=== PATIENT | male | born 1970 | race Caucasian/White ===

== ENCOUNTER 2017-10-07 19:50 | Emergency (ER) | payer BC ==
--- NOTE | 2017-10-07 20:48 | RAD ---
LEFT FOOT THREE VIEWS: HISTORY: Foot pain. Possible insect bite to foot. FINDINGS: Small enthesophytes from the posterior and plantar calcaneus. Tarsals unremarkable. Metatarsals and phalanges appear unremarkable. No fracture. No radicular or destructive process seen. The MTP and the IP joints are unremarkable. IMPRESSION: No acute abnormality identified. POS: JOSE
== END 2017-10-07 20:51 | disposition home or self-care (01) ==
LOC: ERS 19:50
DX: L03.116 Cellulitis of left lower limb (principal); E11.9 Type 2 diabetes mellitus without complications; E78.00 Pure hypercholesterolemia, unspecified; Z79.899 Other long term (current) drug therapy
CPT/HCPCS: 36416

== ENCOUNTER 2019-12-05 11:44 | Inpatient (IN) | payer BC, OTHER ==
[~2019-12-05 11:44] MED LIST: Iopamidol-370 76% 500 ML 1 ML ONE
[2019-12-05 12:20] LABS: #Basophils 0.1 thou/uL (0.0-0.2); #Eosinphils 0.1 thou/uL (0.0-0.7); #Monocytes 0.9 thou/uL (0.11-0.59); #Neutrophils 6.4 thou/uL (1.40-6.50); %Basophils 0.7 % (0.0-1.0); %Eosinophils 0.8 % (0.0-10.0); %Lymphocytes 21.2 % (21.0-51.0); %Monocytes 9.3 % (0.0-10.0); %Neutrophils 68.1 % (42.0-75.0); Hemoglobin 17.9 g/dL (14.0-18.0); Mean Corpuscular HGB CONC 32.8 g/dL (32.0-36.0); Mean Corpuscular Hemoglobin 30.4 pg (27.0-31.0); Mean Corpuscular Volume 92.6 fL (78.0-98.0); Platelet Count 168 thou/uL (130-400); RBC Distribution Width 13.4 % (11.5-14.5); Red Blood Cell (RBC) Count 5.89 mill/uL (4.70-6.10); White Blood Cell (WBC) Count 9.4 thou/uL (4.8-10.8)
--- NOTE | 2019-12-05 12:29 | RAD ---
Exam: Chest one view HISTORY:Atrial flutter Comparison: 07/01/2016 FINDINGS: Cardiac silhouette:Obscuration of the left heart border due to near complete opacification of the lef t hemithorax. Aorta: Cannot be assessed Pulmonary vessels: Normal Costophrenic angles: Possibility of a left-sided effusion is raised. Limited evaluation due to near c omplete opacification of the left hemithorax. LUNGS: Adequate aeration of the right lung. Presumed consolidation/opacification of the left lung. Pneumothorax: None Osseous abnormalities: None IMPRESSION: Near complete opacification of the left hemithorax. Better interrogation with chest CT is recommended.
[2019-12-05] MEDS ORDERED: Diltiazem HCl 125 MG, Admixture Fee 1 EACH in Sodium Chloride 0.9% 100 ML IVPB SCH (12:30)
[2019-12-05 12:33] LABS: ALT (SGPT) 14 U/L (8-55); AST (SGOT) 14 U/L (5-34); Albumin 4.5 g/dL (3.5-5.0); Alkaline Phosphatase 97 U/L (40-110); Anion Gap 15 mmol/L (10-20); BUN (Urea Nitrogen) 16 mg/dL (8.9-20.6); Bilirubin, Total 1.1 mg/dL (0.2-1.2); CK (CPK) 91 U/L (30-200); Calc. Creatinine Clearance 0 mL/min (70-130); Calcium 9.9 mg/dL (7.8-10.44); Carbon Dioxide 27 mmol/L (22-29); Chloride 102 mmol/L (98-107); Estimated GFR-MDRD 86; Globulin 3.4 g/dL (2.4-3.5); Glucose 122 mg/dL (70-105); Lipase 14 U/L (8-78); Potassium 4.1 mmol/L (3.5-5.1); Protein, Total 7.9 g/dL (6.0-8.3); Sodium 140 mmol/L (136-145)
[2019-12-05] MEDS ORDERED: Enoxaparin Sodium 100 MG/ML SYRINGE ONE (12:47)
[2019-12-05 12:53] LABS: INR-International Normal Ratio 1.1; Prothrombin Time 14.1 sec (12.0-14.7)
[2019-12-05 12:54] LABS: PTT 32.3 sec (22.9-36.1)
[2019-12-05] MEDS ORDERED: Diltiazem 125 MG/25 ML ONE (13:00)
[2019-12-05 14:38] LABS: Troponin I 0.042 ng/mL (< 0.028)
[2019-12-05] MEDS ORDERED: Aspirin Chewable 81 MG TAB ONE (14:42)
[2019-12-05] MEDS ORDERED: Metoprolol Tartrate 5 MG/5 ML VIAL ONE (14:53)
[2019-12-05] MEDS ORDERED: Enoxaparin Sodium 120 MG/0.8 ML SYRINGE SC SCH ×2 (15:00→23:45)
[2019-12-05] MEDS ORDERED: Dextrose 50% Abboject 50 ML SYRINGE SLOW IVP PRN (15:26)
[2019-12-05] MEDS ORDERED: HumaLOG 300 UNITS/3 ML VIAL SC PRN ×2 (15:26)
[2019-12-05] MEDS ORDERED: Senokot S 8.6-50 MG TAB PO PRN (15:26)
[2019-12-05] MEDS ORDERED: Bisacodyl 10 MG SUPP PR PRN (15:26)
[2019-12-05] MEDS ORDERED: Dextrose 5% in Water 1,000 ML IV PRN (15:26)
[2019-12-05] MEDS ORDERED: Calcium Carbonate 500 MG ChewTAB PO PRN (15:26)
[2019-12-05] MEDS ORDERED: Ondansetron PF 4 MG/2 ML Vial IVP PRN (15:26)
[2019-12-05] MEDS ORDERED: Acetaminophen 325 MG TAB PO PRN (15:26)
[2019-12-05] MEDS ORDERED: Guaifenesin DM 100-10/5 ML UDCUP PO PRN (15:26)
[2019-12-05 16:59] LABS: Troponin I 0.057 ng/mL (< 0.028)
--- NOTE | 2019-12-05 18:21 | HP ---
REASON FOR ADMISSION: Atrial fibrillation with RVR. HISTORY OF PRESENTING ILLNESS: The patient gives history of his apple watch saying that he is in atrial fibrillation with rates up to 150 beats per minute around 4 :30 p.m. yesterday. He had these episodes off and on till 8:30 p,m. yesterday. This morning, he went to see Dr. Perales for the same and they did EKG in the office, which showed his heart rate to be in the 150s. He was sent to the ER for further workup. The patient states he has no complaints of chest pain, shortness of breath, or palpitation. He also mentions that his resting heart rate ranges anywhere from 105 to 110 beats per minute. 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 He has not had any chemoradiation after that. He states he gets a yearly CAT scan and the last one was in June or July with contrast, which did not show any recurrence as far as he knows. No history of bleeding per rectum. No exposure to COVID. No fever, cough, or expectoration. 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 Last colonoscopy was 3 years back with polyps, but no malignancy. The patient gets yearly CT chest with contrast for surveillance, which the last one was in June or july and did not and did not show any recurrence of his cancer. CURRENT MEDICATIONS: 1. Janumet mg p.o. q.p.m. 2. Invokana 300 mg daily. 3. Lipitor 10 mg p.o. daily. ALLERGIES: NO KNOWN DRUG ALLERGIES. PERSONAL HISTORY: Does not abuse alcohol or drugs. No history of smoking. FAMILY HISTORY: Both parents are healthy. His sister has had history of atrial fibrillation. CODE STATUS: Full. Power of sports attorney is his . REVIEW OF SYSTEMS: CONSTITUTIONAL: Negative for weight loss or gain, ability to conduct usual activities. SKIN: Negative for rash, itching. EYES: Negative for double vision, pain. ENT/MOUTH: Negative for nose bleeding, neck stiffness, pain, tenderness. CARDIOVASCULAR: Negative for palpitations, dyspnea on exertion, orthopnea. RESPIRATORY: Negative for shortness of breath, wheezing, cough, hemoptysis, fever or night sweats. GASTROINTESTINAL: Negative for poor appetite, abdominal pain, heartburn, nausea , vomiting, constipation, or diarrhea. GENITOURINARY: Negative for urgency, frequency, dysuria, nocturia. MUSCULOSKELETAL: Negative for pain, swelling. NEUROLOGIC/PSYCHIATRIC: Negative for anxiety, depression. ALLERGY/IMMUNOLOGIC: Negative for skin rash, bleeding tendency. PHYSICAL EXAMINATION: GENERAL: The patient is a 49-year-old male, who is currently in mild distress due to heart rates going up to 150s. VITAL SIGNS: Blood pressure 138/80, pulse 150 per minute, respiratory rate 18 per minute, temperature 98.1 degrees Fahrenheit, and saturating 99% on room air. NECK: Supple. No elevated JVD. HEENT: Eyes; extraocular muscles intact. Pupils reacting to light. Oral cavity, mucous membranes are moist. No exudates or congestion. CARDIOVASCULAR SYSTEM: S1 and S2 heard. Irregular rhythm. RESPIRATORY: Air entry 1+ bilateral. There is no air entry in the left hemithorax. The right lung. No wheezing or rhonchi. There is good air entry in the right hemithorax. ABDOMEN: Soft. Bowel sounds heard. No tenderness, rigidity, or guarding. EXTREMITIES: No peripheral edema or calf tenderness. VASCULAR SYSTEM: Peripheral pulses 1+ bilateral. No ischemic ulcerations or gangrene. CENTRAL NERVOUS SYSTEM: No gross focal motor deficits noted. The patient is alert, awake, and oriented well. PSYCHIATRIC SYSTEM: The patient's mood is euthymic. No hallucinations or delusions. DIAGNOSTIC DATA: Chest x-ray done shows prior pneumonectomy in the left hemithorax. There is adequate aeration of the right lung. No pneumothorax. Troponin I 0.04. BNP 252. CK-MB 3.0. Albumin 4.5. TSH 1.45. BUN 16, creatinine 0.9, serum glucose 122. Lactic acid 1.7. Liver enzymes within normal limits. PT, INR, and PTT within normal limits. White count of 9, H and H of 17 and 54, platelet count 168 with 68% neutrophils, MCV is 92. EKG done shows atrial fibrillation with RVR Vs a.flutter at around 150 beats per minute. CLINICAL IMPRESSION AND PLAN: The patient will be admitted to telemetry for atrial fibrillation with RVR. I have spoken to Dr. Nunes for Cardiology consultation. He has received 20 mg Cardizem IV push in the ER and was placed on 5 mg/hour drip, which has been escalated to 10 mg/hour. He has received a full-dose aspirin and 110 mg of Lovenox full dose x1. We will continue saxagliptin and metformin as before. The patient is very particular about what medications he would need for his heart and I have Dr. Nunes to discuss with him. He was not comfortable taking digoxin or Lopressor in the ER. Also, the patient was wanting adenosine to be given to see if it is SVT. In view of the patient's preference for certain medications and wanting his specialist to visit him, we will await Dr. Nunes's interaction with him before he is placed on any other new medications. We will continue Cardizem 10 mg an hour for now. We will also continue Lovenox 110 mg subcu q.12 hourly. Echo with 2D Doppler for LV function will be obtained. He will be on clear liquid diet until his heart rate stabilizes. He also mentions that his baseline heart rate goes up to 110 per minute. Job ID: [id number] MTDD
--- NOTE | 2019-12-05 19:49 | CT ---
EXAM: CT of the chest with contrast HISTORY: Intermittent tachycardia; history of left lung removal COMPARISON: 05/12/2016 TECHNIQUE: Multiple contiguous axial images were obtained in a CT the chest with contrast. Coronal an d sagittal reformats were performed. FINDINGS: HEART: Normal in size without focal cardiac abnormality MEDIASTINUM: No hilar or mediastinal lymphadenopathy. LUNGS: The left lung is absent. The previously seen left lung mass has been removed. No abnormality i s seen in the right lung. PLEURAL SPACE: A small amount of fluid is seen in the left apex and is expected postpneumonectomy. CHEST WALL SOFT TISSUES: Unremarkable OSSEOUS STRUCTURES: Multiple left rib fractures are seen from prior surgery. There is radiodense mate rial adjacent to multiple ribs on the left and adjacent to the spleen. Mild degenerative changes are seen in the spine. VISUALIZED SUBDIAPHRAGMATIC STRUCTURES: Unremarkable IMPRESSION: 1. No evidence of acute intrathoracic abnormality. 2. Interval left pneumonectomy with postsurgical changes in the left thorax. There is radiodense mate rial adjacent multiple ribs in the spleen. This may represent heterotopic ossification or some sort of radiodense material used for pleurodesis.
--- NOTE | 2019-12-05 19:56 | CON ---
DATE OF CONSULTATION: 12/05/2019 REASON FOR CONSULTATION: Atrial flutter. PRIMARY END POLISHER: Jerry Haile MD HISTORY OF PRESENT ILLNESS: Mr. Hwang is a very pleasant 49-year-old white gentleman, who comes to the hospital for tachycardia. He noted that his heart rate was in the 150s yesterday on his Apple Watch, so he can see Dr. Perales today who found his heart rate in the 150s. He had an EKG in the office that showed atrial flutter. He was sent to the ER for this and for further evaluation. In the ER, he was found to be in atrial flutter still in 140s to 150s. He was started on diltiazem drip and has better rate control, but it is still in the 120s. Cardiology has been consulted for further evaluation and care. In my evaluation, Mr. Hwang denies any palpitations. No chest pain, tightness, pressure. No syncope or presyncope. PAST MEDICAL HISTORY: 1. Type 2 diabetes. 2. Hyperlipidemia. 3. History of a large squamous cell carcinoma in the left lung, status post complete left pneumonectomy. 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 OUTPATIENT MEDICATIONS: 1. Janumet mg q.p.m. 2. Invokana 300 mg a day. 3. Lipitor 10 mg a day. ALLERGIES: NO KNOWN DRUG ALLERGIES. SOCIAL HISTORY: No alcohol, tobacco, or drugs. 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 FAMILY HISTORY: Sister with atrial fibrillation. REVIEW OF SYSTEMS: A 12-point review of systems was done and was found to be negative other than stated in the history of present illness. PHYSICAL EXAMINATION: VITAL SIGNS: Temperature 97.2, pulse 120, respiratory rate 16, saturating 98% on room air, and blood pressure 108/62. GENERAL: Awake, alert, oriented x3, in no distress. HEENT: Normocephalic and atraumatic. NECK: Supple. LUNGS: Clear right lung. No lung sounds on the left base consistent with history of left pneumonectomy. CARDIOVASCULAR: S1 and S2, tachycardic in the 120s. No murmurs. ABDOMEN: Soft. Positive bowel sounds. EXTREMITIES: Trace edema. SKIN: Warm and dry. LABORATORY DATA: Laboratory work was reviewed. White count of 9, hemoglobin 17, hematocrit 54, platelet count 168. Coags were normal. Chemistries were unremarkable. Glucose was 122. Troponin was 0.04 and 0.05. BNP was 252. TSH was normal. Lipase was normal. EKG was reviewed. Chest x-ray was reviewed. ASSESSMENT/PLAN: 1. Typical atrial flutter. 2. History of lung cancer, status post left pneumonectomy. PLAN: 1. We will try to rate control over the weekend, but talking with Mr. Hwang, the best course of action is to just schedule for an ablation. Over the weekend, try to rate control and start him on full anticoagulation and plan on consulting electrophysiology on Sunday for possible atrial flutter/ablation. Mr. Hwang is in complete agreement with this. We will continue full-dose Lovenox subcutaneously and diltiazem drip just rate control during the weekend. 2. We will get an echocardiogram and has already been ordered. May need a repeat CT of the chest with contrast, make sure there is nothing over stimulating the right ventricle causing this atrial flutter with history of lung cancer. Thank you for letting us to participate in the care of your patient. We will follow. Job ID: [id number]
[2019-12-05] MEDS: metFORMIN 500 MG TAB PO SCH (21:11)
[2019-12-05] MEDS: Atorvastatin Calcium 10 MG TAB PO SCH (21:27)
[2019-12-05 22:45] VITALS: BMI 34.2
[2019-12-06] MEDS: Diltiazem 125 MG in Sodium Chloride 0.9% 100 ML IVPB SCH ×3 (00:44→22:53)
[2019-12-06 03:36] LABS: #Eosinphils 0.1 thou/uL (0.0-0.7); #Lymphocytes 2.4 thou/uL (1.20-3.40); #Monocytes 0.9 thou/uL (0.11-0.59); %Eosinophils 0.7 % (0.0-10.0); %Lymphocytes 28.9 % (21.0-51.0); %Monocytes 10.8 % (0.0-10.0); %Neutrophils 59.5 % (42.0-75.0); Hemoglobin 15.9 g/dL (14.0-18.0); Mean Corpuscular HGB CONC 33.3 g/dL (32.0-36.0); Mean Corpuscular Hemoglobin 30.3 pg (27.0-31.0); Mean Corpuscular Volume 91.1 fL (78.0-98.0); Platelet Count 143 thou/uL (130-400); RBC Distribution Width 13.1 % (11.5-14.5); Red Blood Cell (RBC) Count 5.23 mill/uL (4.70-6.10); White Blood Cell (WBC) Count 8.4 thou/uL (4.8-10.8)
[2019-12-06 03:54] LABS: Anion Gap 13 mmol/L (10-20); BUN (Urea Nitrogen) 15 mg/dL (8.9-20.6); Calc. Creatinine Clearance 196 mL/min (70-130); Calcium 9.2 mg/dL (7.8-10.44); Carbon Dioxide 23 mmol/L (22-29); Chloride 104 mmol/L (98-107); Estimated GFR-MDRD Greater than 90; Glucose 115 mg/dL (70-105); Sodium 136 mmol/L (136-145)
[2019-12-06] MEDS: metFORMIN 500 MG TAB PO SCH (08:33)
[2019-12-06] MEDS: Enoxaparin Sodium 120 MG/0.8 ML SYRINGE SC SCH ×2 (08:35→20:48)
[2019-12-06] MEDS ORDERED: Prevnar 13-Val Conj/PF 0.5 ML SYRINGE IM ONE (09:00)
[2019-12-06] MEDS ORDERED: Alogliptin 6.25 MG TAB PO SCH (09:00)
--- NOTE | 2019-12-06 12:50 | PDOC.CPN ---
- Subjective Date: 12/06/19 Time: 12:48 Interval history: Feeling well. No new issues. - Review of Systems General: denies: fever/chills, weight/appetite/sleep changes, night sweats, fatigue Respiratory: denies: cough, congestion, shortness of breath, exercise intolerance Cardiovascular: denies: chest pain, palpitation, edema, paroxysmal nocturnal dyspnea, orthopnea Gastrointestinal: denies: nausea, vomiting, diarrhea, constipation, abd pain, GI bleeding Musculoskeletal: denies: pain, tenderness, stiffness, swelling, arthritis/ arthralgias Neurological: denies: numbness, syncope, seizure, weakness - Objective Allergies/Adverse Reactions: Allergies Allergy/AdvReac Type Severity Reaction Status Date / Time No Known Drug Allergies Allergy Verified 12/05/19 21:15 Visit Medications: Current Medications Acetaminophen (Tylenol) 650 mg PO Q4H PRN PRN Reason: Headache/Fever/Mild Pain (1-3) Atorvastatin Calcium (Lipitor) 10 mg PO HS [facility] Last Admin: 12/05/19 21:27 Dose: 10 mg Bisacodyl (Dulcolax) 10 mg MO DAILYPRN PRN PRN Reason: Constipation Calcium Carbonate (Tums) 1,000 mg PO Q4H PRN PRN Reason: Heartburn or Indigestion Dextrose/Water (Dextrose 50%) 25 gm SLOW IVP PRN PRN PRN Reason: Hypoglycemia Enoxaparin Sodium (Lovenox) 110 mg SC 0900,2100 [facility] Last Admin: 12/06/19 08:35 Dose: 110 mg Glucagon (Glucagon) 1 mg IM PRN PRN PRN Reason: Hypoglycemia Guaifenesin/Dextromethorphan (Robitussin Dm) 15 ml PO Q4H PRN PRN Reason: Cough Dextrose/Water (D5w) 1,000 mls @ 0 mls/hr IV .Q0M PRN PRN Reason: Hypoglycemia Diltiazem HCl 125 mg/ Sodium (Chloride) 125 mls @ 10 mls/hr IVPB INF MARIO; Protocol Last Admin: 12/06/19 00:44 Dose: 125 mls Insulin Human Lispro (Humalog) 0 units SC .MODERATE SLIDING SC PRN PRN Reason: Moderate Correctional Scale Insulin Human Lispro (Humalog) 0 units SC .BEDTIME SLIDING SC PRN PRN Reason: Bedtime Correctional Scale Ondansetron HCl (Zofran) 4 mg IVP Q6H PRN PRN Reason: Nausea/Vomiting Janumet Xr 0 each PO QPM-WM MARIO Senna/Docusate Sodium (Senokot S) 2 tab PO BIDPRN PRN PRN Reason: Constipation Vital Signs & Weight: Vital Signs Temp Pulse Ox 12/06/19 11:23 96.1 F L 12/06/19 07:50 97 12/06/19 07:13 96.8 F L 12/06/19 03:45 97.2 F L Weight 259 lb 3 oz - Physical Exam General: alert & oriented x3 HEENT: mucus membranes moist Neck: supple neck Cardiac: irregularly regular Lungs: clear to auscultation Neuro: grossly intact Abdomen: active bowel sounds Extremities: 1+ LE edema Skin: clear Musculoskeletal: no pain - Labs Result Diagrams: 12/06/19 03:17 12/06/19 03:17 Troponin/CKMB CK-MB (CK-2) 3.0 ng/mL (0-6.6) 12/05/19 11:59 Troponin I 0.057 ng/mL (< 0.028) H 12/05/19 16:22 - Telemetry Supraventricular conduction: atrial flutter - Assessment/Plan Assessment/Plan: 1. Atypical atrial flutter, rate controlled. 2. Hx of Lung Ca and left pnuemonectomy. PLAN: - Continue full anticoagulation with lovenox. - Continue rate control. - EP consult Sunday for ablation hopefully same day.
--- NOTE | 2019-12-06 14:26 | PDOC.HOSPP ---
- Subjective Encounter Date: 12/06/19 Encounter Time: 13:00 Subjective: THe patient is doing well. He denies palpitations. He states he went to PCP when his apple watch showed heart rate of 120 for eleven hours. Never had atrial flutter before. Denies chest pain, cough, SOB Patient states he felt metoprolol IV worked better, diltiazem didn't work initially. Now he is on cardizem drip at 12.5/hour, heart rate 99. He is still in aflutter - Objective Vital Signs & Weight: Vital Signs (12 hours) Temp Pulse Ox 12/06/19 11:23 96.1 F L 12/06/19 07:50 97 12/06/19 07:13 96.8 F L 12/06/19 03:45 97.2 F L Weight Weight 259 lb 3 oz Most Recent Monitor Data Heart Rate from ECG 81 NIBP 109/68 NIBP BP-Mean 81 Respiration from ECG 17 SpO2 97 I&O: 12/05/19 12/06/19 12/07/19 06:59 06:59 06:59 Intake Total 240 Balance 240 Result Diagrams: 12/06/19 03:17 12/06/19 03:17 Additional Labs: Accuchecks 12/06/19 12/06/19 12/05/19 10:32 06:10 21:33 POC Glucose 156 H 130 H 114 H Hospitalist ROS - Review of Systems Constitutional: denies: fever, chills - Medication Medications: Active Medications Generic Name Dose Route Start Last Admin Trade Name Freq PRN Reason Stop Dose Admin Atorvastatin Calcium 10 mg 12/05/19 21:00 12/05/19 21:27 Lipitor PO 10 mg HS MARIO Administration Enoxaparin Sodium 110 mg 12/06/19 09:00 12/06/19 08:35 Lovenox SC 110 mg 0900,2100 MARIO Administration Diltiazem HCl 125 mg/ Sodium 125 mls @ 10 mls/hr 12/05/19 15:30 12/06/19 00: 44 Chloride IVPB 125 mls INF MARIO Administration Protocol 10 MG/HR - Exam General Appearance: NAD, awake alert Eye: PERRL, anicteric sclera ENT: normocephalic atraumatic, no oropharyngeal lesions Neck: no JVD Heart: no murmur, no gallops, no rubs Heart - other findings: tachycardic Respiratory: CTAB, no wheezes, no rales, no ronchi Gastrointestinal: soft, non-tender, non-distended, normal bowel sounds Extremities: no cyanosis, no clubbing, 1+ LE edema Skin: normal turgor, no lesions, no rashes Neurological: cranial nerve grossly intact, normal sensation to touch, no focal deficits, no new deficit Hosp A/P - Plan CT chest: no acute abnormality This is a 49 year old male who presented with new onset atrial flutter Atrial flutter - currently on cardizem drip, rate controlled at 99 - plan for ablation Sunday with EP consult - covid negative Type II diabetes - januvia and invokana Hyperlipidemia - continue atorvastatin DVT prophylais: lovenox therapeutic COde status: full code
[2019-12-06 15:32] LABS: SARS-CoV-2 MS2 Positive; SARS-CoV-2 N Gene Negative; SARS-CoV-2 S Gene Negative; SARS-CoV-2 by NAA Not Detected (NotDetected); SARS-CoV-2 orf1ab Negative
[2019-12-06] MEDS: JANUMET XR PO SCH (16:38)
[2019-12-06] MEDS: Atorvastatin Calcium 10 MG TAB PO SCH (20:50)
[2019-12-07] MEDS ORDERED: Magnesium Oxide 400 MG TAB PO SCH (09:30)
[2019-12-07] MEDS: Enoxaparin Sodium 120 MG/0.8 ML SYRINGE SC SCH ×2 (10:08→20:31)
[2019-12-07] MEDS: Empagliflozin 25 MG TAB PO SCH (13:47)
--- NOTE | 2019-12-07 14:46 | PDOC.HOSPP ---
- Subjective Encounter Date: 12/07/19 Encounter Time: 10:30 Subjective: The patient is doing well, he does experience some palpitations today. No chest pain or SOB. He is still on the cardizem drip and in atrial flutter. Awaiting EP consultation tomorrow. He is concerned about a rash on his chest that just popped up yesterday. It is no painful, not warm, no discharge. It does not itch. He is wondering whether it is ring-worm - Objective Vital Signs & Weight: Vital Signs (12 hours) Temp 12/07/19 11:07 97.2 F L 12/07/19 07:22 96.6 F L 12/07/19 03:57 97.9 F Weight Admit Weight 259 lb Weight 259 lb 3 oz Most Recent Monitor Data Heart Rate from ECG 116 NIBP 122/80 NIBP BP-Mean 94 Respiration from ECG 18 SpO2 90 I&O: 12/06/19 12/07/19 12/08/19 06:59 06:59 06:59 Intake Total 240 1080 Output Total 900 Balance 240 180 Result Diagrams: 12/06/19 03:17 12/06/19 03:17 Additional Labs: Accuchecks 12/07/19 12/07/19 12/06/19 10:48 05:42 20:35 POC Glucose 149 H 111 H 141 H 12/06/19 16:42 POC Glucose 113 H Hospitalist ROS - Review of Systems Constitutional: denies: fever, chills - Medication Medications: Active Medications Generic Name Dose Route Start Last Admin Trade Name Stefanoq PRN Reason Stop Dose Admin Atorvastatin Calcium 10 mg 12/05/19 21:00 12/06/19 20:50 Lipitor PO 10 mg HS MARIO Administration Enoxaparin Sodium 110 mg 12/06/19 09:00 12/07/19 10:08 Lovenox SC 110 mg 0900,2100 MARIO Administration Diltiazem HCl 125 mg/ Sodium 125 mls @ 10 mls/hr 12/05/19 15:30 12/06/19 22: 53 Chloride IVPB 125 mls INF MARIO Administration Protocol 10 MG/HR Miscellaneous Medication 25 mg 12/07/19 09:00 12/07/19 13:47 Jardiance PO Not Given DAILY MARIO Janumet Xr 0 each 12/06/19 17:00 12/06/19 16:38 PO 1 each QPM-[facility] Administration - Exam General Appearance: NAD, awake alert Eye: PERRL, anicteric sclera ENT: normocephalic atraumatic, no oropharyngeal lesions Neck: no JVD Heart: RRR, no murmur, no gallops, no rubs Heart - other findings: atrial flutter Respiratory: CTAB, no wheezes, no rales, no ronchi Gastrointestinal: soft, non-tender, non-distended, normal bowel sounds Extremities: no cyanosis, no clubbing, no edema Skin - other findings: mild circular rash on chest, possibly fungal Neurological: normal sensation to touch, no weakness, no focal deficits Hosp A/P - Plan CT chest: no acute abnormality This is a 49 year old male who presented with new onset atrial flutter Atrial flutter - currently on cardizem drip, rate controlled at 99 - EP consult tomorrow. Will keep NPO after midnight. - covid negative Type II diabetes - januvia and invokana. Advised to hold in am to avoid hypoglycemia Hyperlipidemia - continue atorvastatin Possible mild fungal rash on chest - started clotrimazole cream DVT prophylais: lovenox therapeutic COde status: full code
--- NOTE | 2019-12-07 16:57 | PDOC.CPN ---
- Subjective Date: 12/07/19 Time: 16:56 Interval history: No new issues. Doing well. - Review of Systems General: denies: fever/chills, weight/appetite/sleep changes, night sweats, fatigue Respiratory: denies: cough, congestion, shortness of breath, exercise intolerance Cardiovascular: denies: chest pain, palpitation, edema, paroxysmal nocturnal dyspnea, orthopnea Gastrointestinal: denies: nausea, vomiting, diarrhea, constipation, abd pain, GI bleeding Musculoskeletal: denies: pain, tenderness, stiffness, swelling, arthritis/ arthralgias Neurological: denies: numbness, syncope, seizure, weakness - Objective Allergies/Adverse Reactions: Allergies Allergy/AdvReac Type Severity Reaction Status Date / Time No Known Drug Allergies Allergy Verified 12/05/19 21:15 Visit Medications: Current Medications Acetaminophen (Tylenol) 650 mg PO Q4H PRN PRN Reason: Headache/Fever/Mild Pain (1-3) Atorvastatin Calcium (Lipitor) 10 mg PO HS [facility] Last Admin: 12/06/19 20:50 Dose: 10 mg Bisacodyl (Dulcolax) 10 mg SC DAILYPRN PRN PRN Reason: Constipation Calcium Carbonate (Tums) 1,000 mg PO Q4H PRN PRN Reason: Heartburn or Indigestion Clotrimazole (Lotrimin 1% Cream) 0 gm TOP DAILY MARIO Dextrose/Water (Dextrose 50%) 25 gm SLOW IVP PRN PRN PRN Reason: Hypoglycemia Enoxaparin Sodium (Lovenox) 110 mg SC 0900,2100 [facility] Last Admin: 12/07/19 10:08 Dose: 110 mg Glucagon (Glucagon) 1 mg IM PRN PRN PRN Reason: Hypoglycemia Guaifenesin/Dextromethorphan (Robitussin Dm) 15 ml PO Q4H PRN PRN Reason: Cough Dextrose/Water (D5w) 1,000 mls @ 0 mls/hr IV .Q0M PRN PRN Reason: Hypoglycemia Diltiazem HCl 125 mg/ Sodium (Chloride) 125 mls @ 10 mls/hr IVPB INF MARIO; Protocol Last Admin: 12/06/19 22:53 Dose: 125 mls Insulin Human Lispro (Humalog) 0 units SC .MODERATE SLIDING SC PRN PRN Reason: Moderate Correctional Scale Insulin Human Lispro (Humalog) 0 units SC .BEDTIME SLIDING SC PRN PRN Reason: Bedtime Correctional Scale Magnesium Oxide (Magnesium Oxide) 400 mg PO DAILY [facility] Miscellaneous Medication (Jardiance) 25 mg PO DAILY [facility] Last Admin: 12/07/19 13:47 Dose: Not Given Ondansetron HCl (Zofran) 4 mg IVP Q6H PRN PRN Reason: Nausea/Vomiting Janumet Xr 0 each PO QPM-WM [facility] Last Admin: 12/06/19 16:38 Dose: 1 each Patient's Home Medication (Invokana ) 0 each PO DAILY [facility] Senna/Docusate Sodium (Senokot S) 2 tab PO BIDPRN PRN PRN Reason: Constipation Vital Signs & Weight: Vital Signs Temp 12/07/19 16:00 96.9 F L 12/07/19 11:07 97.2 F L 12/07/19 07:22 96.6 F L Admit Weight 259 lb Weight 259 lb 3 oz - Physical Exam General: alert & oriented x3 HEENT: mucus membranes moist Neck: supple neck Cardiac: irregularly regular Lungs: clear to auscultation Neuro: grossly intact Abdomen: active bowel sounds Extremities: no edema Skin: clear Musculoskeletal: no pain - Labs Result Diagrams: 12/06/19 03:17 12/06/19 03:17 Troponin/CKMB CK-MB (CK-2) 3.0 ng/mL (0-6.6) 12/05/19 11:59 Troponin I 0.057 ng/mL (< 0.028) H 12/05/19 16:22 - Telemetry Supraventricular conduction: atrial flutter - Assessment/Plan Assessment/Plan: 1. Atypical atrial flutter, rate controlled. 2. Hx of Lung Ca and left pnuemonectomy. PLAN: - Continue full anticoagulation with lovenox. - Continue rate control. - EP consult tomorrow for ablation hopefully same day. - NPO past midnight.
[2019-12-07] MEDS: JANUMET XR PO SCH (17:30)
[2019-12-07] MEDS: Atorvastatin Calcium 10 MG TAB PO SCH (20:32)
[2019-12-08 04:05] LABS: Hemoglobin 15.3 g/dL (14.0-18.0); Mean Corpuscular HGB CONC 34.2 g/dL (32.0-36.0); Mean Corpuscular Volume 90.5 fL (78.0-98.0); Mean Platelet Volume 9.1 fL (7.4-10.4); Platelet Count 150 thou/uL (130-400); RBC Distribution Width 13.1 % (11.5-14.5); Red Blood Cell (RBC) Count 4.93 mill/uL (4.70-6.10); White Blood Cell (WBC) Count 8.4 thou/uL (4.8-10.8)
[2019-12-08 04:25] LABS: Anion Gap 13 mmol/L (10-20); BUN (Urea Nitrogen) 14 mg/dL (8.9-20.6); Calc. Creatinine Clearance 186 mL/min (70-130); Calcium 8.6 mg/dL (7.8-10.44); Carbon Dioxide 24 mmol/L (22-29); Chloride 104 mmol/L (98-107); Estimated GFR-MDRD Greater than 90; Glucose 140 mg/dL (70-105); Magnesium 1.7 mg/dL (1.6-2.6); Potassium 3.9 mmol/L (3.5-5.1); Sodium 137 mmol/L (136-145)
[2019-12-08] MEDS: Diltiazem 125 MG in Sodium Chloride 0.9% 100 ML IVPB SCH (06:23)
[2019-12-08] MEDS ORDERED: Magnesium Oxide 400 MG TAB PO SCH (09:00)
[2019-12-08] MEDS ORDERED: Clotrimazole 1 % Cream 30 GM TUBE TOP SCH (09:00)
[2019-12-08] MEDS ORDERED: INVOKANA PO SCH ×2 (09:00)
[2019-12-08] MEDS ORDERED: Clotrimazole 1% Cream 15 GM TUBE TOP SCH (09:00)
[2019-12-08] MEDS: Empagliflozin 25 MG TAB PO SCH (09:41)
[2019-12-08] MEDS: Enoxaparin Sodium 120 MG/0.8 ML SYRINGE SC SCH (09:42)
[2019-12-08 11:15] VITALS: TEMP 96.6
[2019-12-08] MEDS ORDERED: PROPOFOL 20 ML ONE (15:01)
[2019-12-08] MEDS ORDERED: Ketamine 50 MG/ML (10ML VIAL) ONE (15:01)
[2019-12-08] MEDS ORDERED: Rivaroxaban 10 MG TAB PO SCH (17:00)
[2019-12-08] MEDS: JANUMET XR PO SCH (18:07)
--- NOTE | 2019-12-08 20:47 | OP ---
DATE OF PROCEDURE: 12/08/2019 PROCEDURE PERFORMED: Electrical cardioversion. REASON FOR PROCEDURE: Mr. Hwang is a 49-year-old male with prior history of lung cancer, last lung resection in the past. Now, he is presenting with a sustained atrial flutter, which appears to be typical isthmus dependent in morphology. He has been anticoagulated since admission, and his palpitations and tachycardia clearly started less than 24 hours prior to admission. Hence he has prior history of pulmonectomy, we decided against ETHEL prior to the procedure due to risk of aspiration and potential pulmonary complications. He is undergoing a planned cardioversion. DESCRIPTION OF PROCEDURE: The patient received propofol by Anesthesia specialist. After adequate level of sedation achieved, synchronized 150-joule shock promptly converted the patient back to sinus rhythm. CONCLUSION: Successful cardioversion. PLAN: Initiate antiarrhythmic agents and continue rate-controlling medications and anticoagulation. Consider radiofrequency ablation of cavotricuspid isthmus at a later date. Job ID: [id number]
[2019-12-08] MEDS ORDERED: Flecainide 50 MG TAB PO SCH (21:00)
--- NOTE | 2019-12-09 06:15 | DIS ---
DATE OF ADMISSION: 12/05/2019 DATE OF DISCHARGE: 12/08/2019 DISCHARGE DIAGNOSIS: New onset atrial flutter, status post cardioversion. CONSULTATIONS: 1. Dr. Dorian Nunes with Cardiology 2. Dr. Jeff Price with EP. PROCEDURES: Cardioversion on 12/07. BRIEF HISTORY OF PRESENT ILLNESS: This is a 49-year-old male with past medical history of lung cancer, status post pneumonectomy, who presented to the emergency room after he noted his heart rate was 120 for over 11 hours on his Apple watch. He did not have any other symptoms such as shortness of breath or chest pain. He presented to the ER. He was noted to be in atrial flutter. He was started on a Cardizem drip and admitted to the [facility]. HOSPITAL COURSE: The patient was managed with a diltiazem drip on hospital. His heart rate remained controlled around 99. He continued to be in atrial flutter. He was seen by Cardiology in consultation, who recommended EP consultation. His echo showed an EF of 55% to 60%. He was seen by Dr. Price and ablation was unsuccessful due to equipment issues. He did, however, undergo a cardioversion. He was started on flecainide 100 mg twice daily, metoprolol 50 mg q.24 hours. He was also started on anticoagulation with Xarelto. He should follow up with Dr. Price in 2 weeks for possible outpatient ablation. He should also follow up with Dr. Nunes in a week as well. He should follow up with PCP in a week as well. DISCHARGE PHYSICAL EXAMINATION: VITAL SIGNS: Temperature 96.6, heart rate 83, respiratory rate 12, O2 saturation is 90% on room air, and blood pressure 132/ 76. GENERAL: The patient is obese. He is alert, awake, and oriented x3. CVS: Irregular rate and rhythm with no murmurs, rubs, or gallops. LUNGS: The patient has diminished breath sounds on the left side due to pneumonectomy. ABDOMEN: Positive bowel sounds, soft, nontender, nondistended. EXTREMITIES: No edema. PERTINENT LABORATORY DATA: CBC 12/07: Normal. BMP 12/07: Normal. Magnesium level 12/07: 1.2. LFTs 12/04: Normal. Troponin I: 0.042, 0.057. BNP 12/04: 252. TSH: 1.45. COVID PCR 12/04: Negative. IMAGING DATA: Chest x-ray 12/04: Shows near complete opacification of the left hemithorax. Chest CT 12/04: No evidence of acute intrathoracic abnormality. Multiple rib fractures are seen from prior surgery. Echo 12/06: Shows EF 55% to 60%, mild concentric LVH. Mildly dilated left atrium. Mild MR. Aortic valve sclerosis. Mild TR. Mild LA. DISCHARGE CONDITION: Stable. ACTIVITY: As tolerated. DIET: Heart healthy diet. DISCHARGE MEDICATIONS: 1. Flecainide 100 mg p.o. q.12 hours. 2. Metoprolol 50 mg p.o. q.24. 3. Xarelto 20 mg p.o. daily. 4. Sitagliptin/metformin mg tablet q.24 hours. 5. Invokana 300 mg tablet daily. 6. Atorvastatin 10 mg p.o. at bedtime. DISCHARGE INSTRUCTIONS: The patient to follow up with his PCP in a week, Dr. Price in 2 weeks for outpatient ablation and specialist employee labor relations in a week. Job ID: [id number] MTDD
--- NOTE | 2019-12-09 06:36 | CON ---
DATE OF CONSULTATION: 12/08/2019 Dictated by Sudha Wei, nurse practitioner, as a scribe for Dr. Jeff Price. Consultation performed by Dr. Jeff Price. PRIMARY HEAD OF SALES: Jerry aHile MD REASON FOR CONSULTATION: Atrial flutter in consideration of ablation. HISTORY OF PRESENT ILLNESS: Mr. Hwang is a 49-year-old gentleman who came to the hospital for tachycardia. He has an Apple watch that he regularly wears, which indicated a heart rate of 150 beats per minute the day prior to admission. He was found to be in atrial flutter with RVR with ventricular rates of 140 to 160 beats per minute. He was started on diltiazem drip, which has improved his rate control significantly. This is a newly found arrhythmia issue. Currently, he is feeling well. He denies any heart racing. Endorses occasional palpitations. He has some shortness of breath. Denies any stroke, stroke-like symptoms, or syncopal episodes. 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 Of note, he has a [place] on the left side of his pericardium as that was taken out during his pneumonectomy. PAST MEDICAL HISTORY: 1. Type 2 diabetes. 2. Hyperlipidemia. 3. Large squamous cell carcinoma, left lung, status post left pneumonectomy. REVIEW OF SYSTEMS: Twelve-point review of systems is negative except that listed above in HPI. ALLERGIES: NO KNOWN DRUG ALLERGIES. HOME MEDICATIONS: 1. Janumet XR one tablet daily. 2. Invokana one tablet daily. 3. Lipitor 10 mg p.o. nightly. FAMILY HISTORY: Sister positive for atrial fibrillation, otherwise negative for sudden cardiac or early-onset CAD. SOCIAL HISTORY: Negative for alcohol, tobacco, or illicit drug use. Former EMT, now largely working in education . OBJECTIVE: GROWTH PARAMETERS: Height 6 feet 1 inch, weight 260 pounds, BMI 34.2. VITAL SIGNS: Temperature 96.6, pulse 100, blood pressure 107/71, respirations 18, and oxygen is 96% on room air. GENERAL: The patient is alert and oriented. Speech is clear. Affect is appropriate. He is in no apparent distress at the time of the exam. HEENT: He is normocephalic and atraumatic. His sclerae are anicteric. EOMs are intact. Oral mucosa is moist and pink with adequate dentition. NECK: Large and supple. No significant jugular venous distention is seen. HEART: Rate is irregular, slightly rapid. PMI is difficult to palpate, but largely not displaced. LUNGS: Lung casas on the right are clear to auscultation. Lung sounds on the left are absent status post pneumonectomy. ABDOMEN: Obese, soft, and nontender without palpable masses. EXTREMITIES: Warm and dry to touch. Well perfused without clubbing, cyanosis, or edema. NEUROLOGIC: Grossly intact. Gait was not assessed. LABORATORY DATA: Recent blood work was reviewed. Hematology was unremarkable. Chemistry: Potassium 3.9 and creatinine 0.79. Magnesium 1.7. TSH 1.4. BNP 252. DIAGNOSTIC STUDIES: Echocardiogram on 12/07/2019, LVEF 55% to 60%, mild concentric LVH, mildly dilated left atrium. Telemetry and EKGs initially show atrial flutter with RVR, suggestive of cavotricuspid isthmus dependency in origin, continues in better rate control flutter currently. No clear atrial fibrillation is seen. IMPRESSION: 1. Atrial flutter with rapid ventricular response, newly diagnosed, suggestive of cavotricuspid isthmus dependence. 2. History of lung cancer status post left pneumonectomy. 3. Obesity. 4. Hypertension. 5. History of type 2 diabetes. 6. CHADS-VASc score of greater than or equal to 2 based on hypertension and diabetes. Oral anticoagulation is indicated, currently on weight-based Lovenox. PLAN AND RECOMMENDATIONS: Mr. Hwang is a pleasant 49-year-old gentleman who was found to have newly diagnosed atrial flutter with RVR. It does appear to be typical flutter at this point. No atrial fibrillation is seen. It has been fairly successfully rate controlled with a diltiazem drip. We discussed treatment options for dysrhythmia including ETHEL-guided cardioversion, antiarrhythmic therapy, and/or ablation. We discussed the increased complexity and difficulty his case presents with his prior left pneumonectomy. This will change his anatomical positioning of his heart in his chest, potentially making ablation more difficult. Given the high success rates with low recurrence of typical atrial flutter, my recommendation would be for attempting ablation. He does understand the risks, benefits, and alternatives. We discussed the possibility of him developing atrial fibrillation in the future as well. Highly encouraged weight loss, managing high blood pressure, and also a sleep study to assess for FRANCIS[place]. He is n.p.o. and we will try to perform the ablation later today, schedule permitting. Thank you for allowing me to participate in the care of this patient. Job ID: [id number]
--- NOTE | 2019-12-09 15:48 | EKG ---
Test Reason : Blood Pressure : / mmHG Vent. Rate : 077 BPM Atrial Rate : 077 BPM P-R Int : 178 ms QRS Dur : 108 ms QT Int : 400 ms P-R-T Axes : -16 -53 029 degrees QTc Int : 452 ms Normal sinus rhythm Possible Left atrial enlargement Left axis deviation Incomplete right bundle branch block Inferior infarct , age undetermined cannot be excluded Abnormal ECG Confirmed by DIDI BLACK ([id number]) on 12/09/2019 3:48:08 PM Referred By: Confirmed By:DIDI BLACK
== END 2019-12-08 19:43 | disposition home or self-care (01) | DRG 310 ==
LOC: ERS 11:44 → ERHOLD 13:48 → IMCU/EMU 20:33
PROVIDERS: ADMIT Internal Medicine; ATTEND Internal Medicine
PROC: 5A2204Z Restoration of Cardiac Rhythm, Single (ICD-10-PCS; principal; 2019-12-05)
DX: I48.91 Unspecified atrial fibrillation (principal); E11.9 Type 2 diabetes mellitus without complications; E78.5 Hyperlipidemia, unspecified; E78.00 Pure hypercholesterolemia, unspecified; I48.92 Unspecified atrial flutter; Z79.01 Long term (current) use of anticoagulants
CPT/HCPCS: 36415; 36416; 71045; 71260; 80048; 80053; 82550; 82553; 83605; 83690; 83735; 83880; 84443; 84484; 85025; 85027; 85610; 85730; 87635; 93005; 93010; 93306; 94760; J1650; J2704; J3490; Q9967; U0003

== ENCOUNTER 2021-01-12 16:00 | Observation (INO) | payer BC ==
[2021-01-12 16:34] LABS: #Lymphocytes 1.9 thou/uL (1.20-3.40); #Monocytes 1.1 thou/uL (0.11-0.59); %Eosinophils 0.4 % (0.0-10.0); %Lymphocytes 15.5 % (21.0-51.0); %Monocytes 8.9 % (0.0-10.0); %Neutrophils 75.2 % (42.0-75.0); Hemoglobin 17.3 g/dL (14.0-18.0); Mean Corpuscular HGB CONC 31.7 g/dL (32.0-36.0); Mean Corpuscular Hemoglobin 29.1 pg (27.0-31.0); Mean Corpuscular Volume 91.9 fL (78.0-98.0); Mean Platelet Volume 8.1 fL (7.4-10.4); Platelet Count 175 thou/uL (130-400); Red Blood Cell (RBC) Count 5.93 mill/uL (4.70-6.10)
[2021-01-12 17:01] LABS: ALT (SGPT) 18 U/L (8-55); AST (SGOT) 17 U/L (5-34); Albumin 4.5 g/dL (3.5-5.0); Alkaline Phosphatase 97 U/L (40-110); Anion Gap 14 mmol/L (10-20); BUN (Urea Nitrogen) 14 mg/dL (8.4-25.7); Bilirubin, Total 1.2 mg/dL (0.2-1.2); Calc. Creatinine Clearance 0 mL/min (70-130); Calcium 9.7 mg/dL (7.8-10.44); Carbon Dioxide 27 mmol/L (22-29); Chloride 101 mmol/L (98-107); Glucose 151 mg/dL (70-105); Potassium 4.2 mmol/L (3.5-5.1); Protein, Total 7.5 g/dL (6.0-8.3); Sodium 138 mmol/L (136-145)
[2021-01-12] MEDS ORDERED: Aspirin Chewable 81 MG TAB ONE (19:24)
[2021-01-12] MEDS ORDERED: Morphine 4 MG/ML VIAL ONE (20:45)
[2021-01-12] MEDS ORDERED: Ondansetron PF 4 MG/2 ML Vial ONE (20:45)
[2021-01-12] MEDS ORDERED: Ondansetron PF 4 MG/2 ML Vial IVP PRN (21:25)
[2021-01-12] MEDS ORDERED: Acetaminophen 325 MG TAB PO PRN (21:25)
[2021-01-12] MEDS ORDERED: Dextrose 5% in Water 1,000 ML IV PRN (21:25)
[2021-01-12] MEDS ORDERED: Dextrose 50% Abboject 50 ML SYRINGE SLOW IVP PRN (21:25)
[2021-01-12] MEDS ORDERED: HumaLOG 300 UNITS/3 ML VIAL SC PRN (21:25)
[2021-01-12] MEDS ORDERED: Aspirin 325 MG TAB PO SCH (21:30)
[2021-01-12 23:02] LABS: Troponin I Less than 0.010 ng/mL (< 0.028)
[2021-01-12] MEDS ORDERED: Nitroglycerin 2% Ointment 1 INCH/1 GM Packet ONE (23:42)
[2021-01-12] MEDS ORDERED: Acetaminophen 325 MG TAB ONE (23:42)
[2021-01-12] MEDS: Nitroglycerin 2% Ointment 1 INCH/1 GM Packet TOP SCH (23:51)
[2021-01-12 23:52] VITALS: BMI 33.0
[2021-01-13 00:21] VITALS: BP 98/60; TEMP 98.6
[2021-01-13 01:25] LABS: Troponin I Less than 0.010 ng/mL (< 0.028)
[2021-01-13 01:31] LABS: SARS-CoV-2 NAA Rapid Test Not Detected (NotDetected)
[2021-01-13 04:45] LABS: Anion Gap 15 mmol/L (10-20); BUN (Urea Nitrogen) 13 mg/dL (8.4-25.7); BUN/Creatinine Ratio 15.85; Calc. Creatinine Clearance 171 mL/min (70-130); Calcium 9.5 mg/dL (7.8-10.44); Carbon Dioxide 28 mmol/L (22-29); Cardiac Risk 3.4 (Less than 4.5); Chloride 100 mmol/L (98-107); Cholesterol 142 mg/dl (< 200 Desired); Glucose 109 mg/dL (70-105); HDL Cholesterol 42 mg/dL (>60 Neg Risk); LDL Cholesterol, Calculated 82 mg/dL; Phosphorus 3.6 mg/dL (2.3-4.7); Potassium 4.9 mmol/L (3.5-5.1); Sodium 138 mmol/L (136-145); Triglycerides 90 mg/dL (Less than 150)
[2021-01-13] MEDS ORDERED: Enoxaparin Sodium 40 MG/0.4 ML SYRINGE SC SCH (09:00)
[2021-01-13] MEDS ORDERED: Aspirin Chewable 81 MG TAB PO SCH (09:00)
[2021-01-13] MEDS ORDERED: Empagliflozin 25 MG TAB PO SCH (09:00)
[2021-01-13] MEDS ORDERED: Clopidogrel Bisulfate 75 MG TAB PO SCH (09:00)
[2021-01-13] MEDS ORDERED: Clopidogrel Bisulfate 75 MG TAB ONE (09:56)
[2021-01-13] MEDS ORDERED: Aspirin 81 mg Enteric Coated Tablet ONE (09:56)
[2021-01-13] MEDS ORDERED: Enoxaparin Sodium 40 MG/0.4 ML SYRINGE ONE (10:00)
[2021-01-13] MEDS ORDERED: Ibuprofen 800 MG TAB PO PRN (11:10)
[2021-01-13] MEDS ORDERED: Ketorolac Tromethamine 30 MG/ML VIAL IVP SCH (11:15)
[2021-01-13] MEDS: Nitroglycerin 2% Ointment 1 INCH/1 GM Packet TOP SCH ×2 (12:33→13:11)
[2021-01-13] MEDS ORDERED: Atorvastatin Calcium 10 MG TAB PO SCH (21:00)
== END 2021-01-13 15:40 | disposition home or self-care (01) ==
LOC: ERS 16:00 → ERHOLD 21:16 → PACU-TCU 01-13 10:52
PROVIDERS: ADMIT Internal Medicine; ATTEND Internal Medicine
DX: R07.89 Other chest pain (principal); E11.9 Type 2 diabetes mellitus without complications; E78.5 Hyperlipidemia, unspecified; I10 Essential (primary) hypertension; I48.91 Unspecified atrial fibrillation; E78.00 Pure hypercholesterolemia, unspecified; I48.92 Unspecified atrial flutter; E66.9 Obesity, unspecified; Z68.33 Body mass index [BMI] 33.0-33.9, adult; Z85.118 Personal history of other malignant neoplasm of bronchus and lung; Z79.84 Long term (current) use of oral hypoglycemic drugs; Z79.899 Other long term (current) drug therapy; Z90.2 Acquired absence of lung [part of]; Z20.822 Contact with and (suspected) exposure to COVID-19
CPT/HCPCS: 0240U; 36415; 71045; 71275; 78452; 80053; 80061; 80069; 84484; 85025; 93005; 93017; 94760; 96374; 96375; A9500; G0378; J1650; J2270; J2405; Q9967